=== PATIENT | male | born 1960 | race Caucasian/White ===

== ENCOUNTER 2022-06-04 00:55 | Inpatient (IN) ==
[2022-06-04] MEDS ORDERED: Ondansetron 4 mg VIAL 2 MG/ML 2 ml VIAL IV ONE (01:40)
[2022-06-04] MEDS ORDERED: Morphine 4 MG/ML VIAL (1 ml) IV ONE (01:40)
[2022-06-04] MEDS ORDERED: Lactated Ringers 1000 ml BAG 1,000 ML IV ONE ×2 (01:40→04:07)
[2022-06-04] MEDS ORDERED: Ondansetron 4 mg VIAL 2 MG/ML 2 ml VIAL IV PRN (02:25)
[2022-06-04] MEDS ORDERED: Acetaminophen IV 1 GM/100ML 1,000 MG/100 ML BAG IV PRN (02:28)
[2022-06-04] MEDS ORDERED: Piperacillin/Tazobac ADVAN 3.375 GM in NS 0.9% 100 ml BAG 100 ML IV ONE (02:36)
[2022-06-04] MEDS ORDERED: Zosyn per Pharmacy NOTE FOLLOW UP SCH (03:00)
[2022-06-04] MEDS: Morphine 2 MG/ML SYRINGE IV PRN ×3 (03:43→09:23)
[2022-06-04] MEDS ORDERED: Heparin 5000 UNITS/ML 1 mL VIAL SUBCUT ONE (04:10)
[2022-06-04 05:35] LABS: ABS Basophils 0.1 10^3/ul (0-0.2); ABS Eosinophils 0.2 10^3/ul (0-0.6); ABS Lymphocytes 1.9 10^3/ul (1.0-4.8); ABS Monocytes 0.8 10^3/ul (0-0.8); ABS Neutrophils 6.2 10^3/ul (1.5-7.7); Eosinophil % 2.2 %; Hematocrit 47 % (42-52); Hemoglobin 15.8 g/dL (14.0-18.0); Mean Corpuscular HGB Conc 34 g/dL (31-36); Mean Corpuscular Hemoglobin 34 pg (27-31); Mean Corpuscular Volume 100 fL (80-94); Mean Platelet Volume 7.4 fL (7.4-10.4); Platelet Count 189 10^3/uL (150-450); Red Blood Count 4.66 10^6 /uL (4.18-5.48); Red Cell Distribution Width 13 % (10-15); White Blood Count 9.1 10^3/uL (3.5-10.8)
[2022-06-04] MEDS: ZOSYN 3.375 GM Q8H per EXTENDED INFUSION IV SCH ×3 (06:11→22:47)
[2022-06-04 06:12] LABS: Albumin 3.6 g/dL (3.2-5.2); Calcium 8.6 mg/dL (8.6-10.3); Potassium 4.1 mmol/L (3.5-5.0); Total Protein 5.9 g/dL (6.4-8.9); eGFR CKD-EPI 102.1 (>60)
[2022-06-04 06:13] LABS: Albumin/Globulin Ratio 1.6 (1-3); C Reactive Protein 119.15 mg/L (<8.01); Globulin 2.3 g/dL (2-4); Total Bilirubin 0.8 mg/dL (0.2-1.0)
[2022-06-04] MEDS: HYDROmorphone 0.5 MG/0.5 ML SYRINGE IV SLOW PU PRN ×5 (13:50→22:47)
[2022-06-04] MEDS ORDERED: Lactated Ringers 1000 ml BAG 1,000 ML IV SCH (15:00)
[2022-06-05] MEDS: HYDROmorphone 0.5 MG/0.5 ML SYRINGE IV SLOW PU PRN ×3 (01:41→08:20)
[2022-06-05 06:14] LABS: ABS Eosinophils 0.2 10^3/ul (0-0.6); ABS Lymphocytes 1.6 10^3/ul (1.0-4.8); ABS Monocytes 0.8 10^3/ul (0-0.8); ABS Neutrophils 5.8 10^3/ul (1.5-7.7); Eosinophil % 2.7 %; Hematocrit 48 % (42-52); Hemoglobin 15.9 g/dL (14.0-18.0); Lymphocyte % 18.5 %; Mean Corpuscular HGB Conc 33 g/dL (31-36); Mean Corpuscular Hemoglobin 33 pg (27-31); Mean Corpuscular Volume 100 fL (80-94); Platelet Count 171 10^3/uL (150-450); Red Blood Count 4.81 10^6 /uL (4.18-5.48); Red Cell Distribution Width 13 % (10-15); White Blood Count 8.5 10^3/uL (3.5-10.8)
[2022-06-05] MEDS: ZOSYN 3.375 GM Q8H per EXTENDED INFUSION IV SCH ×3 (06:19→22:19)
[2022-06-05 06:38] LABS: Calcium 8.9 mg/dL (8.6-10.3); eGFR CKD-EPI 101.3 (>60)
[2022-06-05] MEDS: HYDROmorphone 1 MG/1 ML SYRINGE IV SLOW PU PRN ×5 (10:32→21:09)
[2022-06-05 10:58] LABS: Folate 13.7 ng/mL (5.90-24.80)
[2022-06-05] MEDS: Enoxaparin 40 MG/0.4 ML SYR SUBCUT SCH (11:19)
[2022-06-06] MEDS: ZOSYN 3.375 GM Q8H per EXTENDED INFUSION IV SCH ×2 (06:12→15:20)
[2022-06-06 06:25] LABS: Potassium 4.1 mmol/L (3.5-5.0)
[2022-06-06 06:26] LABS: eGFR CKD-EPI 100.9 (>60)
[2022-06-06] MEDS ORDERED: Influenza vaccine *QUAD* *2022-23* 0.5 ML SYRINGE IM ONE (09:00)
[2022-06-06] MEDS: HYDROmorphone 1 MG/1 ML SYRINGE IV SLOW PU PRN ×5 (10:02→21:49)
[2022-06-06] MEDS: Enoxaparin 40 MG/0.4 ML SYR SUBCUT SCH (10:49)
[2022-06-07] MEDS: HYDROmorphone 1 MG/1 ML SYRINGE IV SLOW PU PRN (02:41)
[2022-06-07] MEDS: Enoxaparin 40 MG/0.4 ML SYR SUBCUT SCH (11:10)
[2022-06-07 11:27] VITALS: BP 111/57
== END 2022-06-07 14:10 | disposition home or self-care (01) | DRG 392 ==
LOC: ED 00:55 → EDHOLD 02:25 → SUATTDRO 02:25 → EDHOLD 07:50 → SSU 08:15
PROVIDERS: ADMIT Internal Medicine; ATTEND Internal Medicine

== ENCOUNTER 2023-04-02 14:47 | Inpatient (IN) ==
[2023-04-02] MEDS ORDERED: HYDROmorphone 1 MG/1 ML SYRINGE IV ONE (15:27)
[2023-04-02] MEDS ORDERED: Dextrose 50% Syringe 50 ml 25 GM/50 ML SYRINGE IV PUSH PRN (18:34)
[2023-04-02] MEDS ORDERED: oxyCODONE/Acetamin 10/325(NF) TAB PO PRN (18:41)
[2023-04-02] MEDS ORDERED: Vancomycin per Pharmacy 1 EA NOTE FOLLOW UP SCH (19:00)
[2023-04-02 19:09] LABS: ABS Basophils 0.1 10^3/uL (0.0-0.1); ABS Eosinophils 0.2 10^3/uL (0.0-0.5); ABS Lymphocytes 2.2 10^3/uL (1.0-4.8); ABS Monocytes 0.7 10^3/uL (0.0-1.1); ABS Neutrophils 5.3 10^3/uL (1.5-7.6); Eosinophil % 2.5 %; Hematocrit 45.3 % (38-53); Lymphocyte % 26.1 %; Mean Corpuscular Hemoglobin 34.7 pg (27-33); Mean Corpuscular Hgb Conc 35.3 g/dL (31-36); Mean Corpuscular Volume 98.2 fL (80-97); Mean Platelet Volume 6.9 fL (7.5-11.2); Platelet Count 260 10^3/uL (150-450); Red Blood Count 4.61 10^6/uL (4.06-5.63); Red Cell Distribution Width 12.8 % (12-17); White Blood Count 8.5 10^3/uL (3.6-10.2)
[2023-04-02] MEDS: Cefepime 2 GM in Dextrose 2 GM/50 ML BAG IV SCH (19:25)
[2023-04-02 19:28] LABS: Albumin 4.1 g/dL (3.2-5.2); Albumin/Globulin Ratio 1.4 (1-3); C Reactive Protein 10.84 mg/L (<8.01); Calcium 9.3 mg/dL (8.6-10.3); Creatinine, Serum 0.83 mg/dL (0.67-1.17); Total Bilirubin 0.4 mg/dL (0.2-1.0); Total Protein 7.1 g/dL (6.4-8.9); eGFR CKD-EPI 99.6 (>60)
[2023-04-02] MEDS ORDERED: Vancomycin 2,000 MG in NS 0.9% 500 ml BAG 500 ML IVPB ONE (20:00)
[2023-04-02] MEDS ORDERED: Enoxaparin 40 MG/0.4 ML SYR SUBCUT SCH (20:00)
[2023-04-02 20:30] LABS: Erythrocyte Sed Rate 13 mm/Hr (0-19)
[2023-04-02] MEDS: Vancomycin 1,250 MG in NS 0.9% 250 ml 250 ML IVPB SCH (20:34)
[2023-04-02] MEDS: oxyCODONE/Acetamin 5/325 mg TAB PO PRN (20:38)
[2023-04-02] MEDS: HYDROmorphone 1 MG/1 ML SYRINGE IV SLOW PU PRN (21:59)
[2023-04-03] MEDS: HYDROmorphone 1 MG/1 ML SYRINGE IV SLOW PU PRN ×2 (03:20→12:02)
[2023-04-03] MEDS: Vancomycin 1,250 MG in NS 0.9% 250 ml 250 ML IVPB SCH ×3 (04:34→22:28)
[2023-04-03] MEDS: oxyCODONE/Acetamin 5/325 mg TAB PO PRN (04:44)
[2023-04-03 06:21] LABS: ABS Basophils 0.1 10^3/uL (0.0-0.1); ABS Eosinophils 0.2 10^3/uL (0.0-0.5); ABS Lymphocytes 2.2 10^3/uL (1.0-4.8); ABS Monocytes 0.5 10^3/uL (0.0-1.1); ABS Neutrophils 3.3 10^3/uL (1.5-7.6); ABS Nucleated RBC 0.01 10^3/ul; Eosinophil % 3.7 %; Hematocrit 43.6 % (38-53); Hemoglobin 15.2 g/dL (13.2-16.3); Lymphocyte % 34.7 %; Mean Corpuscular Hemoglobin 34.2 pg (27-33); Mean Corpuscular Hgb Conc 34.8 g/dL (31-36); Mean Corpuscular Volume 98.3 fL (80-97); Mean Platelet Volume 6.8 fL (7.5-11.2); Nucleated Red Blood Cells % 0.1 /100 WBC (0.0-0.4); Platelet Count 233 10^3/uL (150-450); Red Blood Count 4.44 10^6/uL (4.06-5.63); Red Cell Distribution Width 13.1 % (12-17); White Blood Count 6.4 10^3/uL (3.6-10.2)
[2023-04-03 06:41] LABS: Calcium 8.8 mg/dL (8.6-10.3); Creatinine, Serum 0.85 mg/dL (0.67-1.17); eGFR CKD-EPI 98.9 (>60)
[2023-04-03] MEDS: Cefepime 2 GM in Dextrose 2 GM/50 ML BAG IV SCH ×2 (06:44→19:25)
[2023-04-03 06:57] LABS: Potassium 4.4 mmol/L (3.5-5.0)
[2023-04-03] MEDS: Empagliflozin 25 MG TAB PO SCH (08:41)
[2023-04-03] MEDS ORDERED: Acetaminophen IV 1 GM/100ML 1,000 MG/100 ML BAG IV PRN (08:41)
[2023-04-03] MEDS: Morphine 2 MG/ML SYRINGE IV PRN ×2 (09:12→21:43)
[2023-04-03] MEDS ORDERED: Famotidine IV 10 MG/ML 2 ml VIAL (20 mg) IV SLOW PU ONE (10:52)
[2023-04-03] MEDS ORDERED: Famotidine IV 10 MG/ML 2 ml VIAL (20 mg) ONE (10:54)
[2023-04-03] MEDS: Nicotine PATCH 21 MG/24 HR PATCH TRANSDERM SCH (12:03)
[2023-04-03 13:15] LABS: High Sensitivity Troponin 1 Hr 7 pg/mL (<20)
[2023-04-03 16:27] LABS: High Sensitivity Troponin 3 Hr 8 pg/mL (<20)
[2023-04-03] MEDS ORDERED: Gadoteridol (CONTRAST) 279.3 MG/ML 10 ML IV ONE (16:49)
[2023-04-03] MEDS: Nicotine GUM 4MG FRUIT FLAVOR PO PRN (21:37)
[2023-04-03] MEDS: Heparin 5000 UNITS/ML 1 mL VIAL SUBCUT SCH (21:38)
[2023-04-04] MEDS ORDERED: Vancomycin Trough Check NOTE FOLLOW UP ONE (05:30)
[2023-04-04] MEDS: Cefepime 2 GM in Dextrose 2 GM/50 ML BAG IV SCH ×2 (05:40→18:30)
[2023-04-04] MEDS: Heparin 5000 UNITS/ML 1 mL VIAL SUBCUT SCH ×3 (05:40→21:00)
[2023-04-04 05:58] LABS: ABS Basophils 0.1 10^3/uL (0.0-0.1); ABS Eosinophils 0.3 10^3/uL (0.0-0.5); ABS Lymphocytes 2.2 10^3/uL (1.0-4.8); ABS Monocytes 0.8 10^3/uL (0.0-1.1); ABS Neutrophils 5.3 10^3/uL (1.5-7.6); ABS Nucleated RBC 0.01 10^3/ul; Hematocrit 44.9 % (38-53); Hemoglobin 15.6 g/dL (13.2-16.3); Lymphocyte % 25.2 %; Mean Corpuscular Hemoglobin 33.8 pg (27-33); Mean Corpuscular Hgb Conc 34.7 g/dL (31-36); Mean Corpuscular Volume 97.4 fL (80-97); Mean Platelet Volume 6.8 fL (7.5-11.2); Nucleated Red Blood Cells % 0.1 /100 WBC (0.0-0.4); Platelet Count 238 10^3/uL (150-450); Red Blood Count 4.61 10^6/uL (4.06-5.63); Red Cell Distribution Width 12.7 % (12-17); White Blood Count 8.6 10^3/uL (3.6-10.2)
[2023-04-04 06:12] LABS: Calcium 9.1 mg/dL (8.6-10.3); Creatinine, Serum 0.94 mg/dL (0.67-1.17); Potassium 4.2 mmol/L (3.5-5.0); eGFR CKD-EPI 92.2 (>60)
[2023-04-04 06:19] LABS: Vancomycin Trough 11.9 mcg/mL
[2023-04-04] MEDS: Vancomycin 1,250 MG in NS 0.9% 250 ml 250 ML IVPB SCH ×3 (07:04→21:00)
[2023-04-04] MEDS: Morphine 2 MG/ML SYRINGE IV PRN ×3 (07:44→19:43)
[2023-04-04] MEDS: Nicotine PATCH 21 MG/24 HR PATCH TRANSDERM SCH (08:22)
[2023-04-04] MEDS: Empagliflozin 25 MG TAB PO SCH (08:23)
[2023-04-04] MEDS: Aspirin EC 81 mg TAB.EC (enteric coated) PO SCH (08:23)
[2023-04-04 10:07] LABS: Folate 11.44 ng/mL (5.90-24.80)
[2023-04-04] MEDS ORDERED: Propofol 10 MG/ML 20 ML BTL ONE ×2 (10:07→10:09)
[2023-04-04] MEDS ORDERED: fentaNYL 100 mcg/2 ml 50 MCG/ML VIAL ONE ×3 (10:29→12:00)
[2023-04-04] MEDS ORDERED: Acetaminophen IV 1 GM/100ML 1,000 MG/100 ML BAG IV ONE ×2 (10:46→10:59)
[2023-04-04] MEDS ORDERED: Ondansetron 4 mg VIAL 2 MG/ML 2 ml VIAL IV PRN (10:46)
[2023-04-04] MEDS ORDERED: Naloxone 0.4 mg VIAL 0.4 mg/ml 1 ml VIAL IV PRN (10:46)
[2023-04-04] MEDS ORDERED: Ondansetron 4 mg VIAL 2 MG/ML 2 ml VIAL ONE (11:12)
[2023-04-04] MEDS ORDERED: HYDROmorphone 1 MG/1 ML SYRINGE ONE (11:12)
[2023-04-04] MEDS: HYDROmorphone 1 MG/1 ML SYRINGE IV PRN ×5 (11:16→11:59)
[2023-04-04] MEDS: fentaNYL 100 mcg/2 ml 50 MCG/ML VIAL IV PRN ×5 (11:17→12:00)
[2023-04-04] MEDS: Nicotine GUM 4MG FRUIT FLAVOR PO PRN (20:40)
[2023-04-05] MEDS: Morphine 2 MG/ML SYRINGE IV PRN ×3 (01:02→20:52)
[2023-04-05] MEDS: Cefepime 2 GM in Dextrose 2 GM/50 ML BAG IV SCH ×2 (06:02→18:12)
[2023-04-05] MEDS: Heparin 5000 UNITS/ML 1 mL VIAL SUBCUT SCH ×3 (06:02→21:31)
[2023-04-05] MEDS: Vancomycin 1,250 MG in NS 0.9% 250 ml 250 ML IVPB SCH ×3 (07:10→21:31)
[2023-04-05] MEDS: Empagliflozin 25 MG TAB PO SCH (08:09)
[2023-04-05] MEDS: Aspirin EC 81 mg TAB.EC (enteric coated) PO SCH (08:11)
[2023-04-05] MEDS: Nicotine PATCH 21 MG/24 HR PATCH TRANSDERM SCH (08:14)
[2023-04-05 08:57] LABS: Hematocrit 41.8 % (38-53); Hemoglobin 14.4 g/dL (13.2-16.3)
[2023-04-05] MEDS: Psyllium PAK PO SCH (16:42)
[2023-04-05] MEDS: Nicotine GUM 4MG FRUIT FLAVOR PO PRN (20:59)
[2023-04-05] MEDS ORDERED: Morphine 2 MG/ML SYRINGE IV PRN (23:34)
[2023-04-06] MEDS: HYDROmorphone 1 MG/1 ML SYRINGE IV SLOW PU PRN ×2 (01:34→05:41)
[2023-04-06] MEDS ORDERED: Vancomycin Trough Check NOTE FOLLOW UP ONE (05:30)
[2023-04-06] MEDS: Cefepime 2 GM in Dextrose 2 GM/50 ML BAG IV SCH ×2 (05:41→15:22)
[2023-04-06] MEDS: Heparin 5000 UNITS/ML 1 mL VIAL SUBCUT SCH ×2 (05:42→14:25)
[2023-04-06 06:33] LABS: Vancomycin Trough 12.7 mcg/mL
[2023-04-06 06:35] LABS: Creatinine, Serum 0.93 mg/dL (0.67-1.17); eGFR CKD-EPI 93.4 (>60)
[2023-04-06] MEDS: Vancomycin 1,250 MG in NS 0.9% 250 ml 250 ML IVPB SCH ×2 (07:22→13:08)
[2023-04-06] MEDS: Aspirin EC 81 mg TAB.EC (enteric coated) PO SCH (08:58)
[2023-04-06] MEDS: Empagliflozin 25 MG TAB PO SCH (08:58)
[2023-04-06] MEDS: Nicotine PATCH 21 MG/24 HR PATCH TRANSDERM SCH (09:01)
[2023-04-06] MEDS: Psyllium PAK PO SCH (09:03)
[2023-04-06 15:03] VITALS: BP 106/45
[2023-04-08] MEDS ORDERED: Vancomycin Trough Check NOTE FOLLOW UP ONE (05:30)
== END 2023-04-06 16:20 | disposition home or self-care (01) | DRG 617 ==
LOC: ED 14:47 → EDHOLD 14:47 → SUATTDRO 18:30 → MEDTELE 04-03 10:26
PROVIDERS: ADMIT Internal Medicine; ATTEND Hospitalist